=== PATIENT | male | born 1995 | race Caucasian/White ===

== ENCOUNTER 2018-02-09 19:35 | Emergency (ER) | payer OTHER ==
[~2018-02-09] VITALS: Ht 188 cm; Wt 66.4 kg
[2018-02-09 19:45] VITALS: BP 131/77; TEMP 97
[2018-02-09 20:15] LABS: BASO % 0.3 % (0.0-2.0); EOS # 0.1 (0.0-0.7); EOS % 1.2 % (0-4.0); GRAN # 7.7 (1.4-6.5); GRAN % 76.2 % (42.2-75.2); HEMATOCRIT 41.2 % (36.0-47.0); HEMOGLOBIN 15.3 g/dl (12.5-16.1); LYMPH # 1.4 (1.2-3.4); LYMPH % 14.1 % (20.0-51.0); MEAN CELL VOLUME 84 fl (80.0-95.0); MEAN CORPUSCULAR HEMOGLOBIN 31 pg (26.0-32.0); MEAN CORPUSCULAR HGB CONC 37 g/dl (33.0-37.0); MEAN PLATELET VOLUME 9.7 fl (7.4-10.4); MONO # 0.8 (0.1-0.6); MONO % 7.9 % (1.7-9.3); PLATELET COUNT 153 K/mm3 (130-400); RED BLOOD COUNT 4.92 M/mm3 (4.20-5.60); REDCELL DISTRIBUTION WIDTH-CV 11.9 % (11.5-14.5)
[2018-02-09 20:26] LABS: COLLECTION METHOD CLEAN CATCH
[2018-02-09 20:28] LABS: ALBUMIN 4.5 gm/dL (3.5-5.0); BILIRUBIN,TOTAL 1.5 mg/dL (0.0-1.0); CALCIUM 9.5 mg/dL (8.4-10.2); CREATININE, serum 0.99 mg/dL (0.66-1.25); POTASSIUM 3.5 mmol/L (3.4-5.0)
[2018-02-09 20:38] LABS: PH 5 (5-8); SQUAMOUS EPITHELIAL None Seen /hpf; URINE APPEARANCE Clear; URINE BACTERIA None Seen /hpf; URINE BILIRUBIN Negative (NEGATIVE); URINE BLOOD 1+ (NEGATIVE); URINE COLOR Yellow; URINE GLUCOSE Negative (NEGATIVE); URINE KETONE Negative (NEGATIVE); URINE LEUKOCYTE ESTERASE Negative (NEGATIVE); URINE NITRATE Negative (NEGATIVE); URINE PROTEIN(semi-quant) Negative (NEGATIVE); URINE RBC 0-2 /hpf; URINE UROBILINOGEN Negative (NEGATIVE)
[2018-02-10 00:08] VITALS: PULSE 88
== END 2018-02-10 00:10 | disposition home or self-care (01) ==
LOC: COL.ER 19:35
PROVIDERS: Emergency Medicine
DX: R10.33 Periumbilical pain (principal); R10.13 Epigastric pain; R11.10 Vomiting, unspecified; R19.7 Diarrhea, unspecified
CPT/HCPCS: J1885; J2550; J7030